=== PATIENT | female | born 1950 | race Caucasian/White ===

== ENCOUNTER → 2019-04-06 | Outpatient (CLI) | payer MEDICARE, OTHER ==
[~2019-04-06] MED LIST: AMLO5; ASPI81CH PO; CARB100ER PO; CARB200 PO; CONEST1.25; ESTRADIOL1 MG PO; FLUT.05NI; HYDACE5; IBUP400; INDO50; KETO10 PO; LOSARTAN-HCTZ1 EAC2 PO; METO25 PO; METPRE4DP PO; OLME20; OXYACE5T PO; Omeprazole20 M1; PARO25 PO; Paxil40 MG PO; TIZANIDINE HCL4 MG PO; Valium5 MG PO
[2019-04-08 05:40] LABS: Stool Occult Bld Immuno 1 Negative (NEGATIVE)
== END | disposition home or self-care (01) ==
LOC: LAB EV 06:30
PROVIDERS: Family Medicine
DX: Z12.11 Encounter for screening for malignant neoplasm of colon (principal)
CPT/HCPCS: 82274